=== PATIENT | female | born 1985 ===

== ENCOUNTER 2018-09-12 06:00 | Inpatient (IN) | payer OTHER ==
[2018-09-12] MEDS ORDERED: OXYTOCIN/RINGERS LACTATE 1,000 ML IV PRN (06:16)
[2018-09-12] MEDS ORDERED: LR 1,000 ML IV PRN (06:16)
[2018-09-12] MEDS ORDERED: EPSOM SALT 454 GM TP PRN (06:16)
[2018-09-12] MEDS ORDERED: OLIVE OIL 118 ML BTL MISC PRN (06:16)
[2018-09-12] MEDS ORDERED: MISOPROSTOL 200 MCG TAB PR PRN (06:16)
[2018-09-12] MEDS ORDERED: IBUPROFEN 600 MG TAB PO PRN (06:16)
[2018-09-12] MEDS ORDERED: LR 500 ML IV PRN (06:16)
[2018-09-12] MEDS ORDERED: LIDOCAINE 1% 300 MG/30 ML SDV SC PRN (06:16)
[2018-09-12] MEDS ORDERED: OXYTOCIN/RINGERS LACTATE 500 ML IV SCH (06:16)
[2018-09-12 06:46] LABS: PLATELET COUNT 214 10^3/uL (150-400)
--- NOTE | 2018-09-12 10:30 | GHP ---
[f rep st] HISTORY AND PHYSICAL DATE OF ADMISSION: 09/12/2018 The patient is a 33-year-old, G1, P0, at 41 weeks and 2 days with an estimated due date of 09/03/2018 . Patient presents to Labor and Delivery for induction of labor due to postdates. The patient has a favorable cervix and last exam in the office showed 3 cm dilation with 80% effaced at -1 station. B ag of water is intact. Patient had slight bloody show after the exam on Sunday. The patient has be en having contractions, as noted on monitoring in the office, but has not had any real discomfort wit h the contractions. This morning, the patient has been started on Pitocin and currently does not fee l any discomfort with contractions, but does report increased back aching since the Pitocin. Good fe renee movement. The patient has reported good control of her blood sugars, but did not check a fasting level at home prior to admission. COURSE: The patient transferred to [facility] from [facility] in [place] at 30 week s' gestation. The patient's has been complicated by gestational diabetes. The patient has been monitoring blood sugars and has had good control with diet manipulation. The patient reports g enerally fasting blood sugars have been less than 95, and 1-hour blood sugar checks throughout the da y have been borderline, but generally under 140. Additionally, ultrasound by [facility] has revealed a bilo bed placenta with possible velamentous insertion. The patient has had serial ultrasounds with growth between the 17th and 22nd percentiles. Last ultrasound on August 13 revealed approximately 6 catalina nds estimated weight with good fluid. Additionally, a fundal fibroid has been noted, initially 5 x 4 cm, which most recently has measured 4 x 2 cm. Otherwise, the has been uncomplicate d. LABS: Include maternal blood type B positive with negative antibody screen. Early Glucola testing was elevated and the patient had a 3-hour GTT, which only showed 1 abnormal value. This was repeated in May and again the 3-hour GTT showed 2 elevated levels, giving her the diagnosis of g estational diabetes. RPR nonreactive. Rubella immune. Hepatitis B surface antigen negative. HIV n egative. TSH test was normal. Urine drug screen negative. Urinalysis and culture were negative. P ap smear in 2014 was negative. Gonorrhea and chlamydia negative. Verifi testing was negative. MSAF P negative. Hematocrit in May was 34% and the patient was advised to be on iron. GBS culture w as negative. The [facility] and also had Tdap at 28 weeks. PAST MEDICAL HISTORY: Negative. PAST SURGICAL HISTORY: Negative. ALLERGIES: The patient has no known drug allergies. CURRENT MEDICATIONS: Only vitamins and iron. SOCIAL HISTORY: The patient is and lives with her . The patient's parents are diane solo here from [place] to help with the baby. The patient is a nonsmoker. No alcohol or drug use. The patient has been planning on and has a breast pump. FAMILY HISTORY: Negative. PHYSICAL EXAMINATION: Upon admission, the patient is a well-developed, well-nourished [place] female , in no physical distress. VITAL SIGNS: Normal and the patient is afebrile. See nursing documentat ion for full details. heart tones have been in the category 1 pattern with good variability an d accelerations. No decelerations noted. Contractions every 4 to 5 minutes and the patient currentl y is on Pitocin at 8 milliunits per minute. Palpably, the contractions are strong and the patient lopez s little subcutaneous fat. PELVIC: Not currently repeated as recent exam in the office was 2 days a go. EXTREMITIES: Nontender and no edema. ASSESSMENT: Intrauterine at 41 weeks and 2 days, here for induction due to postdates. Ges tational diabetes, diet controlled. Blood sugar checked here was 95. The patient had a light snack for breakfast. The patient is currently on Pitocin. PLAN: We will continue to monitor blood sugars by fingerstick every 2 hours to ensure they are in th e safe range. Plan to perform AROM to help stimulate contractions, approximately 2 hours after last oral intake. The patient and agreed to help stimulate contractions. History of bilobed plac enta and possible velamentous insertion, and will watch heart tones carefully on monitoring. H istory of fundal fibroid, which I do not suspect will be any issue for delivery of baby or placenta. GBS culture negative. /[id number]/MODL
--- NOTE | 2018-09-12 11:28 | OBPROG ---
Labor Progress Note Assessment/Plan: Assessment: IUP at 41w2d for IOL due to postdates GDM-A1, BS normal Plan: pitocin, NILA when desired, AROM now - clear, /-1 09/12/18 11:25 Subjective/Intrapartum Course: 09/12/18 11:26 Pt doing fine. Anxious - not feeling anything. ok with AROM - done without problems. cx soft, on 12 mu/min Objective: 09/12/18 06:35 Patient ABO/Rh B POSITIVE 09/12/18 06:35 - SVE Dilation (cm): 3 Effacement (%): 90 Station: -1 Membranes: AROM Amniotic Fluid Color: Clear (pink tinged) - Contraction Pattern Assessment Current Contraction Pattern: Regular (q 3-4 min on 12 mu/min pit) - FHR Assessment Castro FHR (bpm): 120 FHR Pattern Variability: Moderate FHR Category: 1 (accels, no decels) - Procedures Non-surgical Procedures: Amniotomy - AP Antepartum Course: 09/12/18 11:28 tx care at 30 wks, GDM diet well controlled, fundal fibroid 4 cm, bilobed placenta with possible velamentous CI, EFW 22 % 09/12/18 11:30 Oxytocin Orders Assessment - Pre-Induction/Augmentation Assessment Gestational Age: 41 week(s) and 2 day(s) ICD10 Worksheet Patient Problems: Problems Problem Status Onset Gestational diabetes Acute Post-dates Acute
--- NOTE | 2018-09-12 13:21 | PREANESOB ---
Obstetric Pre-Anesthesia Info - General Info Proposed Procedure: NILA : 1 Para: 0 ANIKET: 09/03/18 Gestational Age: 41 week(s) and 2 day(s) - Info Status: Full Term FHR Pattern: Reassuring - Labor Status Cervical Dilation per last OB SVE: 3 Station per last OB SVE: -1 Amniotic Fluid Color: Clear (pink tinged) Indications for Labor Analgesia: Pain Control Labor Epidural: Yes Anesthesia Allergies/Adverse Reactions: Allergy/AdvReac Type Severity Reaction Status Date / Time No Known Allergies Allergy Unverified 09/11/18 12:47 Home Medications: Medication Instructions Recorded Fish Oil [place]-3 Softgel 09/12/18 Iron 09/12/18 09/12/18 Visit Medications: Generic Name Dose Route Start Last Admin Trade Name Freq PRN Reason Stop Dose Admin Lactated Ringer's 1,000 mls @ 0 mls/hr 09/12/18 06:16 09/12/18 07:12 Lr IV 09/13/18 06:15 1,000 mls PRN PRN Administration SEE PROTOCOL CONDITIONS Protocol Per Protocol Oxytocin/Lactated Ringer's 1,000 mls @ 125 mls/hr 09/12/18 06:16 Pitocin 20 Units/Lr (Premix) IV PRN PRN Post bleeding Oxytocin/Lactated Ringer's 500 mls @ 0 mls/hr 09/12/18 06:16 09/12/18 07:12 Pitocin 30 Units/Lr (Premix) IV 03/11/19 06:15 500 mls CONT HAILY Administration Protocol Per Protocol Ibuprofen 600 mg 09/12/18 06:16 Motrin PO ONCE PRN post , pain Lidocaine HCl 300 mg 09/12/18 06:16 Lidocaine Hcl 1% SC 03/11/19 06:15 ONCE PRN episiotomy Magnesium Sulfate 454 gm 09/12/18 06:16 Epsom Salt TP 03/11/19 06:15 Q1H PRN perineal discomfort Misoprostol 800 - 1,000 mcg 09/12/18 06:16 Cytotec IA ONCE PRN Vaginal Atony/Bleeding [place] Oil 118 ml 09/12/18 06:16 Sweet Oil MISC 03/11/19 06:15 ONCE PRN perineal massage Discontinued Medications Generic Name Dose Route Start Last Admin Trade Name Freq PRN Reason Stop Dose Admin Lactated Ringer's 500 mls @ 500 mls/hr 09/12/18 06:16 Lr IV 09/12/18 12:48 PRN PRN Maternal Hypotension - Anesthesia History Response to Local Anesthetics: Normal - Social History Substance Use/Abuse: Denies - Vital Signs Height/Weight (Nursing): Height 157.48 cm Weight 64.41 kg - Focused Exam Neck exam: FROM Mallampati Score: Class 2 Mouth exam: normal dental/mouth exam Pulmonary: no respiratory distress, no rales or rhonchi Cardiovascular: regular rate and rhythym, no murmur, rub, or gallop Labs: 09/12/18 06:35 Patient ABO/Rh B POSITIVE 09/12/18 06:35 - Plan Anesthetic Plan: NILA Consent Signed and on Chart: Yes Patient/Guardian Understands and Agrees to Plan: Yes
[2018-09-12] MEDS ORDERED: fentaNYL 100 MCG/2 ML INJ ONE (13:24)
[2018-09-12] MEDS ORDERED: fentaNYL 2MCG/ML/BUP 0.1% RTU 100 ML BAG EP ONE (13:24)
[2018-09-12] MEDS ORDERED: BUPIVACAINE 0.25% 10 ML SDV ONE (13:25)
[2018-09-12] MEDS ORDERED: PHENYLEPHRINE HCL 100 MCG/ML SYR ONE (13:25)
[2018-09-12] MEDS ORDERED: TERBUTALINE SULFATE 1 MG/ML VIAL ONE (13:30)
[2018-09-12] MEDS ORDERED: OLIVE OIL 118 ML BTL ONE (13:30)
[2018-09-12] MEDS ORDERED: LIDOCAINE 1% 300 MG/30 ML SDV ONE (13:30)
[2018-09-12] MEDS ORDERED: AMMONIA AROMATIC 1 EACH AMP IH ONE (13:30)
[2018-09-12] MEDS ORDERED: MISOPROSTOL 200 MCG TAB ONE (13:31)
[2018-09-12] MEDS ORDERED: OXYTOCIN 10 UNIT/ML VIAL ONE (13:31)
[2018-09-12] MEDS ORDERED: ONDANSETRON 4 MG/2 ML VIAL IVP PRN (15:09)
[2018-09-12] MEDS ORDERED: PHENYLEPHRINE HCL 100 MCG/ML SYR IVP PRN (15:09)
[2018-09-12] MEDS ORDERED: LR 500 ML IV SCH (15:30)
[2018-09-12] MEDS ORDERED: fentaNYL 2MCG/ML/BUP 0.1% RTU 100 ML EP SCH (15:30)
--- NOTE | 2018-09-12 18:42 | OBPROG ---
Labor Progress Note Assessment/Plan: Assessment: IUP at 41w2d for IOL due to postdates GDM-A1, BS normal Plan: Now complete and beginning to push. Got NILA early afternoon and was 390/0 at 3pm 09/12/18 11:25 09/12/18 18:33 Subjective/Intrapartum Course: 09/12/18 11:26 Pt doing fine. Anxious - not feeling anything. ok with AROM - done without problems. cx /-1 soft, on 12 mu/min 09/12/18 18:34 Pt comf with NILA, not feeling any pressure. some bloody show, feels a bit nauseated and just threw up - declines meds. instructed on pushing and beginning. /+1 Objective: 09/12/18 06:35 Patient ABO/Rh B POSITIVE 09/12/18 06:35 - SVE Dilation (cm): 10 Effacement (%): 100 Station: +1 Membranes: AROM Amniotic Fluid Color: Clear (pink tinged) Dilation Complete Date: 09/12/18 - Contraction Pattern Assessment Current Contraction Pattern: Regular (q 3-4 min on 12 mu/min pit) - Procedures Non-surgical Procedures: Amniotomy - AP Antepartum Course: 09/12/18 11:28 tx care at 30 wks, GDM diet well controlled, fundal fibroid 4 cm, bilobed placenta with possible velamentous CI, EFW 22 % 09/12/18 11:30 Oxytocin Orders Assessment - Pre-Induction/Augmentation Assessment Gestational Age: 41 week(s) and 2 day(s) ICD10 Worksheet Patient Problems: Problems Problem Status Onset Gestational diabetes Acute Post-dates Acute
--- NOTE | 2018-09-13 02:12 | OBDEL ---
Info Type: Vaginal Presentation at Delivery: Vertex L&D Analgesia/Anesthesia Type: Epidural GBS+: No Intrapartum Medications: Generic Name Dose Route Start Last Admin Trade Name Freq PRN Reason Stop Dose Admin Lactated Ringer's 1,000 mls @ 0 mls/hr 09/12/18 06:16 09/12/18 07:12 Lr IV 09/13/18 06:15 1,000 mls PRN PRN Administration SEE PROTOCOL CONDITIONS Protocol Per Protocol Oxytocin/Lactated Ringer's 500 mls @ 0 mls/hr 09/12/18 06:16 09/12/18 07:12 Pitocin 30 Units/Lr (Premix) IV 03/11/19 06:15 500 mls CONT HAILY Administration Protocol Per Protocol Fentanyl/Bupivacaine HCl 100 mls @ 0 mls/hr 09/12/18 15:30 09/13/18 01:30 Fentanyl/Bupivacaine/Ns 2 Mcg/Ml 0.1% (Premix EP 09/22/18 15:29 100 mls CONT HAILY Administration Protocol As Directed Lactated Ringer's 500 mls @ 0 mls/hr 09/12/18 15:30 09/13/18 01:31 Lr IV 03/11/19 15:29 500 mls CONT HAILY Administration As Directed [place] Oil 118 ml 09/12/18 06:16 09/13/18 01:31 Sweet Oil MISC 03/11/19 06:15 1 btl ONCE PRN Administration perineal massage - Hospital Course Intrapartum: 09/12/18 11:26 Pt doing fine. Anxious - not feeling anything. ok with AROM - done without problems. cx 3/90/-1 soft, on 12 mu/min 09/12/18 18:34 Pt comf with NILA, not feeling any pressure. some bloody show, feels a bit nauseated and just threw up - declines meds. instructed on pushing and beginning. 10/100/+1 Indications for Delivery: Postterm Favorable Cervix Vaginal Delivery - Delivery Provider Delivery Physician/CNM: Tejal Vargas - Labor and Delivery Onset of Contractions Date: 09/12/18 Onset of Contractions Time: 11:45 Onset of Contractions Type: Induced Rupture of Membranes Date: 09/12/18 Rupture of Membranes Time: 11:11 Rupture of Membranes Type: Artificial Amniotic Fluid Color: Clear (pink tinged) Dilation Complete Date: 09/12/18 Dilation Complete Time: 18:15 Placenta Delivery Date: 09/13/18 Placenta Delivery Time: 01:32 (bilobed placenta with velamentous CI right betw lobes) Total Hours of Labor: 13 Non-surgical Procedures: Amniotomy Laceration: 1st Degree (midline perineal, also right labial minor tear and clitoral stretch tear - both not needing repair) Repair: 3-0, Vicryl Vaginal Sponge Count Correct: Yes Vaginal Needle Count Correct: Yes Vaginal Sweep Performed: Yes EBL: 350 Delivery Events: Retained Placenta (after 30 min from delivery, manual extraction of placenta, intact - u/s check and no sign of RPOCs, good uterine tone after placenta out) Delivery Comment: due to maternal fatigue, pt offered VAVD. applied and with one gentle pull, baby delivered to - suction removed and pt pushed head out. - Medications Labor Augmentation/Induction Methods Used: Pitocin Labor Augmentation/Induction Indication: Post Dates Assissted Delivery Assisted Delivery Type: Vacuum Station: +3 Pop offs (Total): 0 Pulls (Total): 1 Assisted Delivery Comment: done for maternal fatigue [place] Data ANIKET: 09/03/18 Gestational Age: 41 week(s) and 3 day(s) Castro Delivery Date: 09/13/18 Delivery Time: 00:54 Sex of Infant: Male (Liu) Score (1 Min): 8 Score (5 Min): 9 ICD10 Worksheet Patient Problems: Problems Problem Status Onset Retained placenta without hemorrhage, delivered, current hospitalization Acute Status post vacuum-assisted vaginal delivery Acute Gestational diabetes Acute
[2018-09-13] MEDS ORDERED: ceFAZolin 2 GM/DEXTROSE 100 ML IV ONE (02:37)
[2018-09-13] MEDS: IBUPROFEN 600 MG TAB PO PRN ×2 (09:14→17:18)
--- NOTE | 2018-09-13 11:21 | OBPP ---
Progress Note Assessment/Plan: Assessment: s/p VAVD and manual extraction of retained placenta PPD #0 - pt is stable B+/RI/GBS neg Plan: Continue routine pp care Pt is afebrile, s/p Ancef x 1 dose Encourage ambulation support prn Plan for d/c home in 48 hours on 09/1509/13/18 11:21 Subjective/ Course: 09/13/18 11:19 Pt seen and examined. Doing well, notes some cramping and soreness. Relief with Motrin and Tylenol. Pt is OOB, raquel regular diet, voiding without difficulty and no flatus yet. Mod lochia. She is working on BF, is in the room now. Objective: 09/12/18 06:35 Patient ABO/Rh B POSITIVE 09/12/18 06:35 Temp Pulse Resp BP Pulse Ox 36.9 C 102 H 20 95/56 L 94 09/13/18 03:45 09/13/18 03:45 09/13/18 03:45 09/13/18 03:45 09/13/18 03:45 Uterine Position/Fundal Height: Umbilicus -1 Uterine Tone: Firm Physical Exam - Physical Exam General Appearance: WD/WN, alert, no apparent distress Respiratory: lungs clear, normal breath sounds Cardiac/Chest: regular rate, rhythm Abdomen: normal bowel sounds, non-tender, soft Extremities: non-tender, normal inspection Skin: normal color, warm/dry Neuro/Psych: alert, normal mood/affect, oriented x 3
--- NOTE | 2018-09-13 12:52 | POSTANESTH ---
Post Anesthetic Evaluation Cardiovascular Status: Normal, Stable Respiratory Status: Normal, Stable Level of Consciousness/Mental Status: Can Participate in Eval, Alert and Oriented Pain Control: Adequate, Prn Tx Ordered Nausea/Vomiting Control: Adequate, Prn Tx Ordered Complications Possibly Related to Anesthesia: None Noted Notes: All block from epidural has resolved. Pt has no STEIN, N/V, back pain, pruritus. Will call if STEIN develops in next two weeks. Knows to go to ER if severe back pain or significant leg weakness occurs in the next two weeks.
--- NOTE | 2018-09-13 13:41 | POSTANESTH ---
Post Anesthetic Evaluation Cardiovascular Status: Normal, Stable Respiratory Status: Normal, Stable Level of Consciousness/Mental Status: Can Participate in Eval Pain Control: Adequate, Prn Tx Ordered Nausea/Vomiting Control: Adequate, Prn Tx Ordered (Back dry. No sign of infection. No STEIN Doing well) Complications Possibly Related to Anesthesia: None Noted
[2018-09-13] MEDS: ACETAMINOPHEN 325 MG TAB PO PRN ×2 (14:29→20:20)
[2018-09-14] MEDS: IBUPROFEN 600 MG TAB PO PRN ×3 (01:32→20:36)
--- NOTE | 2018-09-14 12:54 | OBPP ---
Progress Note Assessment/Plan: Assessment: 33 y/o PPD #1 s/p doing well. Plan: Routine PPC, will add Colace for PP care. support. 09/14/18 12:53 Subjective/ Course: 09/13/18 11:19 Pt seen and examined. Doing well, notes some cramping and soreness. Relief with Motrin and Tylenol. Pt is OOB, raquel regular diet, voiding without difficulty and no flatus yet. Mod lochia. She is working on BF, is in the room now. 09/14/18 12:51 Pt is doing well. She has min cramping controlled with Ibuprofen. She is ambulating and voiding without difficulty. BF is going well, baby is under the bili lights. Objective: 09/14/18 01:45 Patient ABO/Rh B POSITIVE 09/12/18 06:35 Temp Pulse Resp BP Pulse Ox 36.6 C 107 H 16 103/71 97 09/14/18 08:00 09/14/18 08:00 09/14/18 08:00 09/14/18 08:00 09/13/18 20:00 Uterine Position/Fundal Height: Umbilicus -2 Uterine Tone: Firm Physical Exam - Physical Exam General Appearance: alert, no apparent distress Neck: non-tender, full range of motion, supple Respiratory: chest non-tender, lungs clear, normal breath sounds Cardiac/Chest: regular rate, rhythm Abdomen: normal bowel sounds Extremities: swelling (no), Aby's sign (neg)
--- NOTE | 2018-09-15 10:02 | OBPP ---
Progress Note Assessment/Plan: Assessment: s/p VAVD and manual extraction of retained placenta PPD #2 - pt is stable Anemia - pt is asymptomatic B+/RI/GBS neg Plan: Plan for d/c home Instructions reviewed with pt No Rx given Cont PNV, iron and stool softener Pelvic rest and lifting restrictions reviewed 09/15/18 09:59 Subjective/ Course: 09/13/18 11:19 Pt seen and examined. Doing well, notes some cramping and soreness. Relief with Motrin and Tylenol. Pt is OOB, raquel regular diet, voiding without difficulty and no flatus yet. Mod lochia. She is working on BF, is in the room now. 09/14/18 12:51 Pt is doing well. She has min cramping controlled with Ibuprofen. She is ambulating and voiding without difficulty. BF is going well, baby is under the bili lights. 09/15/18 10:02 Pt seen and examined. Doing well with no complaints. No further cramping. Mod lochia. Raquel regular diet, voiding and had BM x1. BF is going well. Objective: 09/14/18 01:45 Patient ABO/Rh B POSITIVE 09/12/18 06:35 Temp Pulse Resp BP Pulse Ox 37.4 C 108 H 18 116/74 97 09/14/18 20:08 09/14/18 20:08 09/14/18 20:08 09/14/18 20:08 09/14/18 20:08 Uterine Position/Fundal Height: Umbilicus -2 Uterine Tone: Firm Physical Exam - Physical Exam General Appearance: WD/WN, alert, no apparent distress Respiratory: lungs clear, normal breath sounds Cardiac/Chest: regular rate, rhythm Abdomen: normal bowel sounds, non-tender, soft Extremities: non-tender, normal inspection Skin: normal color, warm/dry Neuro/Psych: alert, normal mood/affect, oriented x 3
--- NOTE | 2018-09-15 10:05 | OBGCSDC ---
General Delivery Information - General Info : 1 Para: 1 Abortions: 0 Type: Vaginal L&D Analgesia/Anesthesia Type: Epidural Admission Date: 09/12/18 Labs: Patient ABO/Rh B POSITIVE 09/12/18 06:35 Hct 29.8 % (38.0-47.0) L 09/14/18 01:45 - Hospital Course Antepartum: 09/12/18 11:28 tx care at 30 wks, GDM diet well controlled, fundal fibroid 4 cm, bilobed placenta with possible velamentous CI, EFW 22 % 09/12/18 11:30 Intrapartum: 09/12/18 11:26 Pt doing fine. Anxious - not feeling anything. ok with AROM - done without problems. cx 390/-1 soft, on 12 mu/min 09/12/18 18:34 Pt comf with NILA, not feeling any pressure. some bloody show, feels a bit nauseated and just threw up - declines meds. instructed on pushing and beginning. 10/100/+1 : 09/13/18 11:19 Pt seen and examined. Doing well, notes some cramping and soreness. Relief with Motrin and Tylenol. Pt is OOB, michelle regular diet, voiding without difficulty and no flatus yet. Mod lochia. She is working on BF, is in the room now. 09/14/18 12:51 Pt is doing well. She has min cramping controlled with Ibuprofen. She is ambulating and voiding without difficulty. BF is going well, baby is under the bili lights. 09/15/18 10:02 Pt seen and examined. Doing well with no complaints. No further cramping. Mod lochia. Michelle regular diet, voiding and had BM x1. BF is going well. Vaginal - Delivery Provider Delivery Physician/CNM: Tejal Vargas - Diagnosis Labor: Induced Rupture of Membranes Type: Artificial Amniotic Fluid Color: Clear (pink tinged) Laceration: 1st Degree (midline perineal, also right labial minor tear and clitoral stretch tear - both not needing repair) Repair: 3-0, Vicryl Delivery Events: Retained Placenta (after 30 min from delivery, manual extraction of placenta, intact - u/s check and no sign of RPOCs, good uterine tone after placenta out) - Procedures Assisted Delivery Type: Vacuum Non-surgical Procedures: Amniotomy - Delivery Non-surgical Procedures: Amniotomy EBL: [address] [place] Data ANIKET: 09/03/18 Gestational Age: 41 week(s) and 5 day(s) Castro Delivery Date: 09/13/18 Delivery Time: 00:54 Sex of Infant: Male (Liu) Weight (gm): 3440 g Score (1 Min): 8 Score (5 Min): 9 Discharge Information - Discharge Information Condition: Good Instruction/Follow Up: Four Weeks (mood check), Six Weeks ( check)
[2018-09-15] MEDS: IBUPROFEN 600 MG TAB PO PRN (13:14)
[2018-09-15 13:36] VITALS: BP 112/68
== END 2018-09-15 13:26 | disposition home or self-care (01) | DRG 807 ==
LOC: FLD 06:08 → FOB 09-13 04:09
PROVIDERS: ADMIT Obstetrics & Gynecology; ATTEND Obstetrics & Gynecology
PROC: 3E033VJ Introduction of Other Hormone into Peripheral Vein, Percutaneous Approach (ICD-10-PCS; 2018-09-12)
PROC: 10907ZC Drainage of Amniotic Fluid, Therapeutic from Products of Conception, Via Natural or Artificial Opening (ICD-10-PCS; principal; 2018-09-13)
PROC: 10D07Z6 Extraction of Products of Conception, Vacuum, Via Natural or Artificial Opening (ICD-10-PCS; principal; 2018-09-13)
PROC: 0HQ9XZZ Repair Perineum Skin, External Approach (ICD-10-PCS; principal; 2018-09-13)
DX: O48.0 Post-term pregnancy (principal); Z37.0 Single live birth; Z3A.41 41 weeks gestation of pregnancy; O24.410 Gestational diabetes mellitus in pregnancy, diet controlled; O70.0 First degree perineal laceration during delivery; O34.13 Maternal care for benign tumor of corpus uteri, third trimester
CPT/HCPCS: J0690; J2370; J2590; J3010; J3105